=== PATIENT | female | born 1985 ===

== ENCOUNTER 2017-12-08 14:45 | Inpatient (IN) | payer OTHER ==
[~2017-12-08] VITALS: Ht 162.6 cm; Wt 83.5 kg
[2017-12-25] MEDS ORDERED: IRON325 MG PO (16:14)
[2017-12-25] MEDS ORDERED: PRENATAL TABLE1 EAC1 PO (16:15)
== END 2017-12-27 11:53 | DRG 775 ==
LOC: OB/GYN 12-25 14:45 → LDR 12-25 16:07 → SURG-SUITE 12-25 20:48
PROC: 0KQM0ZZ Repair Perineum Muscle, Open Approach (ICD-10-PCS; principal; 2017-12-25)
PROC: 10E0XZZ Delivery of Products of Conception, External Approach (ICD-10-PCS; 2017-12-25)
PROC: 0W8NXZZ Division of Female Perineum, External Approach (ICD-10-PCS; 2017-12-25)
PROC: 4A1HXCZ Monitoring of Products of Conception, Cardiac Rate, External Approach (ICD-10-PCS; 2017-12-25)
PROC: 4A033R1 Measurement of Arterial Saturation, Peripheral, Percutaneous Approach (ICD-10-PCS; 2017-12-25)
DX: O70.1 Second degree perineal laceration during delivery (principal); Z37.0 Single live birth; Z3A.39 39 weeks gestation of pregnancy; O99.013 Anemia complicating pregnancy, third trimester

== ENCOUNTER 2017-12-18 09:06 | Outpatient (CLI) | payer OTHER | END 2017-12-18 09:59 | disposition home or self-care (01) | LOC: NST 09:06 | DX: Z34.83 Encounter for supervision of other normal pregnancy, third trimester (principal) ==

== ENCOUNTER 2017-12-24 09:38 | Outpatient (CLI) | payer OTHER ==
[2017-12-25] MEDS ORDERED: IRON325 MG PO (16:14)
[2017-12-25] MEDS ORDERED: PRENATAL TABLE1 EAC1 PO (16:15)
== END 2017-12-24 10:33 | disposition home or self-care (01) ==
LOC: NST 09:38
DX: Z34.83 Encounter for supervision of other normal pregnancy, third trimester (principal)